=== PATIENT | male | born 1965 | race American Indian/Alaskan Native ===

== ENCOUNTER 2018-01-29 09:36 | Emergency (ER) | payer MEDICARE ==
[2018-01-29] MEDS ORDERED: TYLENOL PO ONE (10:39)
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
[2018-01-29 11:29] VITALS: BP 154/77
--- NOTE | 2018-01-30 12:50 | XRay Report ---
Single view chest: History: Cough and fever. Findings: Normal cardiomediastinal silhouette. Trachea is midline. Ill-defined 5 cm density right cardiophrenic angle. Normal CP angles. Impression: Density right lower lobe probably suggestive of pneumonitis.
== END 2018-01-29 11:29 | disposition home or self-care (01) ==
LOC: ED 09:36
DX: J18.9 Pneumonia, unspecified organism (principal); I10 Essential (primary) hypertension; E11.9 Type 2 diabetes mellitus without complications; F17.200 Nicotine dependence, unspecified, uncomplicated
CPT/HCPCS: 71045

== ENCOUNTER 2019-10-27 12:10 | Emergency (ER) | payer OTHER, MEDICARE ==
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
[2019-10-27 14:00] VITALS: BP 170/86
== END 2019-10-27 14:11 | disposition left against medical advice (07) ==
LOC: ED 12:10
DX: S16.1XXA Strain of muscle, fascia and tendon at neck level, initial encounter (principal); S46.911A Strain of unspecified muscle, fascia and tendon at shoulder and upper arm level, right arm, initial encounter; Z88.0 Allergy status to penicillin; V87.7XXA Person injured in collision between other specified motor vehicles (traffic), initial encounter; Y93.89 Activity, other specified; Y92.410 Unspecified street and highway as the place of occurrence of the external cause; Y99.8 Other external cause status
CPT/HCPCS: 99282